=== PATIENT | male | born 1980 | race Caucasian/White ===

== ENCOUNTER → 2016-09-18 | Outpatient (REF) | payer SELFPAY ==
[2016-09-18 12:15] LABS: ALBUMIN 4.4 g/dL (3.4-5.0); ANION GAP 20.3 MEQ/L (3-15); CALCULATED IONIZED CALCIUM 3.9 mg/dL (3.8-4.6); TOTAL PROTEIN 7.6 g/dL (6.4-8.5)
== END ==
LOC: LAB 11:41
PROVIDERS: ATTEND Family Medicine
DX: G40.804 Other epilepsy, intractable, without status epilepticus (principal); R51 Headache; E66.09 Other obesity due to excess calories; E78.4 Other hyperlipidemia
CPT/HCPCS: 80053; 80061; 80201

== ENCOUNTER → 2016-10-10 | Outpatient (CLI) | payer SELFPAY | LOC: RAD 11:51 | PROVIDERS: ATTEND Physician Assistant Surgical | DX: R10.84 Generalized abdominal pain (principal) | CPT/HCPCS: 74000 ==

== ENCOUNTER → 2016-10-10 | Outpatient (REF) | payer SELFPAY ==
[2016-10-10 11:45] LABS: BASOPHILS % (AUTO) 0 % (0-2); EOSINOPHILS # (AUTO) 0.1 10^3uL; EOSINOPHILS % (AUTO) 1 % (0-4); LYMPHOCYTES # (AUTO) 1.4 X10^3; MEAN CORPUSCULAR HEMOGLOBIN 30.8 PG (26.0-34.0); MEAN CORPUSCULAR VOLUME 88 FL (80-100); MEAN PLATELET VOLUME 9.6 FL (6.0-9.5); MONOCYTES # (AUTO) 0.6 X10^3; MONOCYTES % (AUTO) 8 % (3-11); NEUTROPHILS # (AUTO) 5.1 X10^3; NEUTROPHILS % (AUTO) 71 % (51-67); PLATELET COUNT 173 10^3uL (150-450); WHITE BLOOD COUNT 7.13 10^3uL (4.0-11.0)
[2016-10-10 11:55] LABS: ALBUMIN 4.9 g/dL (3.4-5.0); ALKALINE PHOSPHATASE 133 U/L (38-126); AMYLASE* 59 U/L (25-115); BUN/CREATININE RATIO 17 (10-20); CALCULATED IONIZED CALCIUM 3.8 mg/dL (3.8-4.6); LIPASE* 39 U/L (23-300); TOTAL PROTEIN 8.4 g/dL (6.4-8.5)
[2016-10-10 11:55] LABS: BILIRUBIN,URINE Negative (Negative); COLOR,URINE Yellow; GLUCOSE, URINE (UA) Negative (Negative); LEUKOCYTE ESTERASE ,URINE Negative (Negative); UROBILINOGEN,URINE 0.2 mg/dL (0.2-1.0)
[2016-10-10 12:02] LABS: CLARITY,URINE Slightly Cloudy
[2016-10-10 12:44] LABS: ERYTHROCYTE SEDIMENTATION RT* 8 mm/hr (0-12)
[2016-10-16 20:13] LABS: HEPATITIS A ANTIBODY IGM Negative; HEPATITIS B CORE ABY IGM Negative; HEPATITIS B SURFACE ANTIGEN C Negative
== END ==
LOC: LAB 11:35
PROVIDERS: ATTEND Physician Assistant Surgical
DX: R10.84 Generalized abdominal pain (principal)
CPT/HCPCS: 80053; 80074; 81003; 82150; 83690; 85025; 85652